=== PATIENT | female | born 1995 | race Caucasian/White ===

== ENCOUNTER 2017-12-30 12:24 | Emergency (ER) | payer BC ==
[2017-12-30 12:47] VITALS: BP 107/71
--- NOTE | 2017-12-30 13:29 | UC ---
Upper Extremity HPI - HPI Summary HPI Summary: States she was at work about 2 weeks ago pushing a roller cart which veered to one side and her right hand was caught between it and the wall. States that it started to hurt about 4 days after the incident and she has been consistently taking naproxen without relief. c/o pain along thumb and upwards towards forearm , cannot extend thumb or move it too much. Denies chills, fever. States sometimes has tingling on tips of fingers 2-5 - History of Current Complaint Chief Complaint: UCUpperExtremity Stated Complaint: RIGHT WRIST COMPLAINT Time Seen by Provider: 12/30/17 12:36 Hx Obtained From: Patient Hx Last Menstrual Period: unknown ?: No Onset/Duration: Sudden Onset, Lasting Weeks Severity Initially: Mild Severity Currently: Severe Pain Intensity: 10 Location Of Pain: Is Discrete @ - right thumb and right forearm Character: Aching Aggravating Factor(s): Movement, Lifting, Flexion, Extension Alleviating Factor(s): Nothing Associated Signs And Symptoms: Positive: Numbness/Tingling Related History: Dominant Hand Right - Risk Factors DVT Risk Factors: Negative Septic Arthritis Risk Factor: Negative - Allergies/Home Medications Allergies/Adverse Reactions: Allergies Allergy/AdvReac Type Severity Reaction Status Date / Time cefaclor [From [facility]] Allergy Rash Verified 12/30/17 12:49 gluten Allergy GI Upset Verified 12/30/17 12:49 Home Medications: Home Medications Ibuprofen TAB* [Motrin TAB* 800 MG] 800 mg PO Q6H PRN 12/30/17 [History Confirmed 12/30/17] Levothyroxine TAB* [Synthroid TAB*] 175 mcg PO QAM 12/30/17 [History Confirmed 12/30/17] Liothyronine TAB* [Cytomel TAB*] 5 mcg PO BID 12/30/17 [History Confirmed ] medroxyPROGESTERone ACETATE* [DEPO-Provera] 150 mg IM SEE INSTRUCTIONS 12/30/17 [History Confirmed 12/30/17] PMH/Surg Hx/FS Hx/Imm Hx Previously Healthy: Yes Endocrine History: Hypothyroidism - Surgical History Surgical History: Yes Surgery Procedure, Year, and Place: thyroid nodules - Family History Known Family History: Positive: Other - thyroid disease - Social History Alcohol Use: Occasionally Substance Use Type: None Smoking Status (MU): Never Smoked Tobacco Review of Systems Musculoskeletal: Arthralgia, Myalgia All Other Systems Reviewed And Are Negative: Yes Physical Exam Triage Information Reviewed: Yes Appearance: Well-Appearing, Well-Nourished, Pain Distress Vital Signs: Initial Vital Signs Temp 100.2 F 12/30/17 12:35 Pulse 89 12/30/17 12:35 Resp 22 12/30/17 12:35 BP 107/71 12/30/17 12:35 Pulse Ox 99 12/30/17 12:35 Vital Signs Reviewed: Yes Eyes: Positive: Conjunctiva Clear ENT: Positive: Normal ENT inspection Neck: Positive: Supple, Nontender, No Lymphadenopathy Respiratory: Positive: Chest non-tender, Lungs clear, Normal breath sounds, No respiratory distress Cardiovascular: Positive: RRR, No Murmur, Pulses Normal Musculoskeletal: Positive: Edema @ - radial aspect right forearm. No skin bruising, [place] test positive, Tinel/phalen tests limited due to limited ROM due to pain and sensitivity to the area. Pulses present, capillary refill normal. Upper Extremity Course/Dx - Course Course Of Treatment: xray of right wrist negative for fracture. Use thumb spica splint, sling to keep UE at chest level. Referral for PT - Differential Dx/Diagnosis Provider Diagnoses: De Quervain's tenosinovitis Discharge - Sign-Out/Discharge Documenting (check all that apply): Patient Departure - Discharge Plan Condition: Stable Disposition: HOME Forms: *Work Release Referrals: No Primary Care Phys,NOPCP [Primary Care Provider] - [facility] [place] [facility] [Outside] - Billing Disposition and Condition Condition: STABLE Disposition: Home
--- NOTE | 2017-12-30 13:33 | RAD ---
HISTORY: trauma 2 weeks ago COMPARISONS: None VIEWS: 3, Frontal, lateral, and oblique views of the right wrist FINDINGS: BONE DENSITY: Normal. BONES: There is no displaced fracture. JOINTS: There is no arthropathy. ALIGNMENT: There is no dislocation. SOFT TISSUES: Unremarkable. OTHER FINDINGS: None. IMPRESSION: NO ACUTE OSSEOUS INJURY. IF SYMPTOMS PERSIST, RECOMMEND REPEAT IMAGING.
== END 2017-12-30 14:38 | disposition home or self-care (01) ==
LOC: UCCORT 12:24
DX: W23.0XXA Caught, crushed, jammed, or pinched between moving objects, initial encounter (principal); Y93.89 Activity, other specified; Y92.89 Other specified places as the place of occurrence of the external cause; Y99.0 Civilian activity done for income or pay; M65.4 Radial styloid tenosynovitis [de Quervain]; Z88.1 Allergy status to other antibiotic agents; E03.9 Hypothyroidism, unspecified
CPT/HCPCS: 99203; G0463